=== PATIENT | male | born 1980 | race Caucasian/White ===

== ENCOUNTER → 2020-01-26 | Outpatient (CLI) | payer BC, OTHER | END | disposition home or self-care (01) | LOC: LABMAIN 21:40 | PROVIDERS: ATTEND Family Medicine | DX: Z03.818 Encounter for observation for suspected exposure to other biological agents ruled out (principal) ==

== ENCOUNTER → 2023-01-27 | Outpatient (CLI) | payer BC ==
[2023-01-27 15:29] LABS: ALT 21 U/L (10-49); AST 15 U/L (14-35); Albumin 4.6 d/dL (3.8-4.9); Alkaline Phosphatase 79 U/L (41-126); Blood Urea Nitrogen 14.3 mg/dL (9.0-27.0); Calcium 9.3 mg/dL (8.7-10.3); Carbon Dioxide 26.3 mmol/L (21.6-31.8); Chloride 103 mmol/L (96-109); Chol/HDL Ratio 3.89 Ratio; Glucose 95 mg/dL (70-110); LDL Cholesterol,Calculated 100.1 mg/dL (0.0-131.0); Potassium 4.2 mmol/L (3.5-5.5); Sodium 141 mmol/L (135-145); Total Bilirubin 0.6 mg/dL (0.3-1.2); Total Protein 6.6 d/dL (6.2-8.2)
[2023-01-27 16:18] LABS: Basophils # (A) 0.09 X 10*3/uL (0.00-0.10); Basophils % (A) 1.1 %; Eosinophils # (A) 0.17 X 10*3/uL (0.04-0.35); Eosinophils % (A) 2.2 %; HCT 48.1 % (39.6-50.0); HGB 16.4 d/dL (12.0-15.0); Lymphocytes # (A) 2.53 X 10*3/uL (0.90-5.00); Lymphocytes % (A) 32.3 %; MCH 29.2 pg (27.0-32.0); MCHC 34.1 d/dL (32.0-37.0); MCV 85.7 FL (80.0-97.0); Mean Platelet Volume 10.1 FL (9.5-12.2); Monocytes # (A) 0.55 X 10*3/uL (0.20-1.00); NRBC Per 100 WBC 0 X 10*3/uL (0.00-0.01); Neutrophils # (A) 4.44 X 10*3/uL (1.80-7.70); Neutrophils % (A) 56.8 %; Platelet Count 237 X 10*3/uL (140-440); RBC 5.61 X 10*6/uL (4.40-5.60); RDW 13.1 % (11.5-14.5); WBC 7.83 X 10*3/uL (4.50-10.00)
== END | disposition home or self-care (01) ==
LOC: LABWHC1 07:13
PROVIDERS: ATTEND Family Medicine
DX: Z12.5 Encounter for screening for malignant neoplasm of prostate (principal); G47.33 Obstructive sleep apnea (adult) (pediatric); E66.9 Obesity, unspecified; Z68.39 Body mass index [BMI] 39.0-39.9, adult
CPT/HCPCS: 80061; 80053; 84443; 85025; 36415; G0103